=== PATIENT | male | born 1985 | race Caucasian/White ===

== ENCOUNTER → 2019-11-28 | Outpatient (CLI) | payer MEDICARE, MEDICAID ==
--- NOTE | 2019-11-28 12:41 | MRI ---
EXAM DESCRIPTION: Brain w/oContrast CLINICAL HISTORY: 33 years Male, HEADACHES COMPARISON: None. TECHNIQUE: Multisequence, multiplanar images of the brain obtained without intravenous contrast. FINDINGS: Brain Parenchyma, Ventricles, Meninges: No restricted diffusion. No acute intracranial hemorrhage. Normal ventricles and sulci. No abnormal signal alteration of the brain parenchyma. No abnormal extra-axial fluid collection. Vascular Structures: Normal flow voids for the major intracranial arteries and dural venous sinuses. Calvarium, paranasal sinuses, mastoids, and orbits: No abnormal calvarial or skull base marrow signal changes. Mild mucosal thickening of the right sphenoid and bilateral ethmoid sinuses. Mastoids are clear. Grossly unremarkable orbits. IMPRESSION: 1. No acute intracranial abnormality. 2. Mild right sphenoid and bilateral ethmoid sinus disease. Electronically signed by: Sanjiv Perez MD 11/28/2019 12:39 PM CDT [facility]
== END ==
LOC: MRI 08:10
PROVIDERS: ATTEND General Practice
DX: R51.0 Headache with orthostatic component, not elsewhere classified (principal); J34.89 Other specified disorders of nose and nasal sinuses

== ENCOUNTER 2019-12-25 13:12 | Emergency (ER) | payer MEDICARE, OTHER ==
--- NOTE | 2019-12-25 13:31 | ED.PDOC ---
History of Present Illness - General Chief Complaint: Lower Extremity Injury Time Seen by Provider: 12/25/19 13:15 Source: patient, RN notes reviewed - History of Present Illness Initial Comments: Patient was stepping off truck and twisted ankle. Complains of pain in ankle foot and tib/fib. did not hit head, no other injuries. States it hurts to walk, but is able to. no prior injury. Occurred: this morning Allergies/Adverse Reactions: Allergies NO KNOWN ALLERGY Allergy (Verified 12/25/19 13:28) Review of Systems - Review of Systems Constitutional: Denies: chills, fever EENTM: Denies: blurred vision, throat swelling Respiratory: Denies: cough, short of breath Cardiology: Denies: chest pain Gastrointestinal/Abdominal: Denies: abdominal pain, nausea, vomiting Genitourinary: Denies: frequency, hematuria Musculoskeletal: States: joint pain, joint swelling, muscle pain. Denies: back pain, muscle stiffness, neck pain Skin: Denies: dryness, rash Neurological: Denies: headache, numbness, paresthesia, tremors, weakness Endocrine: Denies: unexplained weight gain, unexplained weight loss Hematologic/Lymphatic: Denies: blood clots, easy bleeding, easy bruising Past Medical History (General) - Patient Medical History Hx Seizures: No Hx Stroke: No Hx Dementia: No Hx Asthma: No Hx of COPD: No Hx Cardiac Disorders: No Hx Congestive Heart Failure: No Hx Pacemaker: No Hx Hypertension: No Hx Thyroid Disease: No Hx Diabetes: No Hx Gastroesophageal Reflux: No Hx Renal Disease: No Hx Cancer: No Hx of HIV: No Hx Hepatitis B: No Hx Hepatitis C: No Hx MRSA: No Hx Other PMH: No Family Medical History - Family History Mother Family History: No Known Physical Exam - Physical Exam General Appearance: Alert, Comfortable, No apparent distress, Well Developed, Well Groomed, Well Hydrated, Well Nourished Eyes, Ears, Nose, Throat: PERRL/EOMI, normal ENT inspection Neck: non-tender, full range of motion, supple, normal inspection Cardiovascular/Respiratory: regular rate, rhythm, no M/R/G, normal peripheral pulses, no JVD, normal breath sounds, no respiratory distress Gastrointestinal/Abdominal: non-tender Back: normal inspection, no CVA tenderness, no vertebral tenderness Thigh/Hip: normal inspection, non-tender, no evidence of injury, normal ROM Leg: normal inspection, non-tender, no evidence of injury, normal ROM Knee: normal inspection, non-tender, no evidence of injury, normal ROM Ankle: normal inspection, no evidence of injury, normal ROM Foot: normal inspection, no evidence of injury, normal ROM, bone tenderness DTR - Lower Extremities: 2+: Achilles, left, Achilles, right Neuro/Tendon: normal sensation, normal motor functions, normal tendon functions, responds to pain Mental Status: alert, oriented x 3 Skin: normal color, warm/dry Comments: antalgic gait. Progress - Progress Progress: 12/25/19 14:03 The data reviewed when caring for this patient included: nurse notes, prior records, etc. The history and assessments from nurses notes were reviewed and considered, and the patient's home medication list was also reviewed and considered. My assessment and the results of testing completed here in the ED were discussed with the patient/family. All questions were answered, and they express understanding of my assessment and the plan. They have been instructed to return if their symptoms worsen, and have been asked to follow up with their primary care physician to recheck today's presenting complaint. return precautions given. Anika Saha DO #[id number] ankle/tib/fib xray no acute fracture noted. Foot medial base of 5th mcp with slight irregularity, possibly due to overlying MCP. Radiology reads no acute fracture. Will place in LARON wrap. Follow up with pcp. Weight bearing as tolerated. If pain continues may need MRI. Departure - Departure Clinical Impression: Ankle sprain Qualifiers: Encounter type: initial encounter Involved ligament of ankle: unspecified ligament Laterality: left Qualified Code(s): S93.402A - Sprain of unspecified ligament of left ankle, initial encounter Time of Disposition: 14:03 Disposition: Discharge to Home or Self Care Condition: Fair Departure Forms: ED Discharge - Pt. Copy, Patient Portal Self Enrollment Instructions: DI for Leg Pain, Foot Sprain (DC) Activity: increase activity as tolerated Referrals: Nick Rivera MD [Primary Care Provider] - 1-2 Weeks
[2019-12-25] MEDS ORDERED: IBUPROFEN 200 MG TAB PO ONE (13:45)
--- NOTE | 2019-12-25 13:58 | RAD ---
EXAM DESCRIPTION: Tibia/Fibula,Left CLINICAL HISTORY: 33 years Male, fall COMPARISON: None. FINDINGS: Two views of the left tibia and fibula show no acute fracture or malalignment. No radiopaque foreign body or soft tissue gas. IMPRESSION: Negative exam. Electronically signed by: Augustine Self MD 12/25/2019 1:56 PM CDT
--- NOTE | 2019-12-25 13:59 | RAD ---
EXAM DESCRIPTION: Ankle,Left 3 Views CLINICAL HISTORY: 33 years Male, fall COMPARISON: None. FINDINGS: Three views of the left ankle show no acute fracture or malalignment. The tibiotalar joint space and talar dome are well-maintained. No soft tissue swelling. IMPRESSION: Negative exam. Electronically signed by: Augustine Self MD 12/25/2019 1:57 PM CDT
--- NOTE | 2019-12-25 14:00 | RAD ---
EXAM DESCRIPTION: Foot,Left 3 Views CLINICAL HISTORY: 33 years Male, fall COMPARISON: None. FINDINGS: Three views of the left foot show no acute fracture or malalignment. No radiopaque foreign body or soft tissue gas. IMPRESSION: Negative exam. Electronically signed by: Augustine Self MD 12/25/2019 1:59 PM CDT
[2019-12-25 14:26] VITALS: BP 123/85; TEMP 97.9; O2SAT 95
== END 2019-12-25 14:27 | disposition home or self-care (01) ==
LOC: ER 13:12
DX: S93.402A Sprain of unspecified ligament of left ankle, initial encounter (principal); X50.9XXA Other and unspecified overexertion or strenuous movements or postures, initial encounter; Y93.89 Activity, other specified; Y92.812 Truck as the place of occurrence of the external cause